=== PATIENT | male | born 1985 | race American Indian/Alaskan Native ===

== ENCOUNTER 2020-06-28 08:27 | Emergency (ER) | payer SELFPAY ==
[2020-06-28 08:34] VITALS: BP 146/90
--- NOTE | 2020-06-28 08:58 | XRay Report ---
CHEST 2 VIEWS INDICATION: cough. COMPARISON: None FINDINGS: SUPPORT DEVICES: None. HEART: Within normal limits. LUNGS/PLEURA: Small nodular density in the left lung base may represent a tiny calcified granuloma. O therwise clear lungs. No pneumothorax. ADDITIONAL FINDINGS: None. IMPRESSION: 1. No acute findings. Signer Name: Gil Wilder MD Signed: 06/28/2020 8:54 AM Workstation Name: [id number]
--- NOTE | 2020-06-28 09:04 | Emergency Department Report ---
Upper Respiratory HPI - HPI Chief Complaint: Upper Respiratory Infection Stated Complaint: COUGH/LEGS ITCHING Time Seen by Provider: 06/28/20 08:30 Duration: 3 months URI Symptoms: Rhinorrhea: No, Sore Throat: No, Ear Pain: No, Cough: Yes, Shortness of Breath: No, Sick Contacts: No, Unable to Take Fluids: No, Urine Output Abnormal: No, Listless Behavior: No Other History: This is a 35-year-old male nontoxic well in [facility] with no signs of distress presents with dry nonproductive cough x3 months. Patient also has a secondary complaint of jock itch x 1 week. Patient denies any chest pain, shortness of breathe, fever, chills, nausea, vomiting, headache, stiff neck, abdominal pain, numbness or tingling. Patient denies any recent travels, long car rides, or recent hospital stays. Denies any allergies or significant PMH. - Home Meds and Allergies Home Medications: Previous Rx's Medication Instructions Recorded Last Taken Type Benzonatate [Tessalon Perles] 100 mg PO Q12H PRN #12 capsule 06/28/20 Unknown Rx Clotrimazole 1% [Lotrimin 1%] 1 applic TP BID #1 tube 06/28/20 Unknown Rx ED Review of Systems ROS: Stated complaint: COUGH/LEGS ITCHING Other details as noted in HPI Constitutional: denies: chills, fever Eyes: denies: eye pain, eye discharge, vision change ENT: denies: ear pain, throat pain Respiratory: cough. denies: shortness of breath, wheezing Cardiovascular: denies: chest pain, palpitations Endocrine: no symptoms reported Gastrointestinal: denies: abdominal pain, nausea, diarrhea Genitourinary: denies: urgency, dysuria Musculoskeletal: denies: back pain, joint swelling, arthralgia Skin: rash. denies: lesions, change in color, change in hair/nails, pruritus Neurological: denies: headache, weakness, paresthesias Psychiatric: denies: anxiety, depression Hematological/Lymphatic: denies: easy bleeding, easy bruising ED Past Medical Hx - Past Medical History Previous Medical History?: No Additional medical history: VARICOSE - Social History Smoking Status: Never Smoker Substance Use Type: Alcohol, Marijuana - Medications Home Medications: Home Medications Medication Instructions Recorded Confirmed Last Taken Type Benzonatate [Tessalon Perles] 100 mg PO Q12H PRN #12 capsule 06/28/20 Unknown Rx Clotrimazole 1% [Lotrimin 1%] 1 applic TP BID #1 tube 06/28/20 Unknown Rx ED Bronchiolitis Physical Exam - Exam General: Vital signs noted. No distress. Alert and acting appropriately. Neurologic: Alert and oriented, no deficits. Musculoskeletal: Unremarkable. ED Bronchiolitis Tests - Testing Testing: CXR: Normal/Negative ED Physical Exam - General Limitations: No Limitations General appearance: alert, in no apparent distress - Head Head exam: Present: atraumatic, normocephalic - Eye Eye exam: Present: normal appearance - Neck Neck exam: Present: normal inspection, full ROM - Respiratory Respiratory exam: Present: normal lung sounds bilaterally. Absent: respiratory distress, wheezes, rales, rhonchi, stridor, chest wall tenderness, accessory muscle use, decreased breath sounds, prolonged expiratory - Cardiovascular Cardiovascular Exam: Present: regular rate, normal rhythm, normal heart sounds. Absent: bradycardia, tachycardia, irregular rhythm, systolic murmur, diastolic murmur, rubs, gallop - Extremities Exam Extremities exam: Present: full ROM - Back Exam Back exam: Present: full ROM - Neurological Exam Neurological exam: Present: alert, oriented X3 - Psychiatric Psychiatric exam: Present: normal affect, normal mood - Skin Skin exam: Present: warm, dry, intact, erythema (to bilateral jock area with itching). Absent: rash ED Course Vital Signs 06/28/20 08:34 Temperature 97.8 F Pulse Rate 73 Respiratory 18 Rate Blood Pressure 146/90 O2 Sat by Pulse 97 Oximetry - Reevaluation(s) Reevaluation #1: 06/28/20 09:02 Patient is speaking in full sentences with no signs of distress noted. ED Medical Decision Making - Radiology Data Referring Physician: VALENTE TORREZ Patient Name: SAULO SANFORD Date of : 1985 Sex: Male Report Date: 2020-06-28 Report Status: Finalized [facility] [address] [place] [address] XRay Report Signed Patient: SAULO SANFORD MR#: [id number] : 1985 Acct:[id number] Age/Sex: 35 / M ADM Date: 06/28/20 Loc: ED Attending Dr: Ordering Physician: VALENTE TORREZ NP Date of Service: 06/28/20 Procedure(s): XR chest routine 2V Accession Number(s): [id number] cc: VALENTE TORREZ NP Fluoro Time In Minutes: CHEST 2 VIEWS INDICATION: cough. COMPARISON: None FINDINGS: SUPPORT DEVICES: None. HEART: Within normal limits. LUNGS/PLEURA: Small nodular density in the left lung base may represent a tiny calcified granuloma. Otherwise clear lungs. No pneumothorax. ADDITIONAL FINDINGS: None. IMPRESSION: 1. No acute findings. Signer Name: Gil Wilder MD Signed: 06/28/2020 8:54 AM Workstation Name: [id number] Transcribed By: ANGELLA Dictated By: Gil Wilder MD Electronically Authenticated By: Gil Wilder MD Signed Date/Time: 06/28/2054 DD/ 2 TD/TT: - Medical Decision Making 35-year-old male that presents with chronic cough. Patient is stable and was examined by me. Patient notified of the chest xray with no questions noted by the patient. Patient was educated on OTC suppurative care and medications. Vital signs are stable. Patient was instructed to Follow-up with a primary care doctor in 3-5 days or if symptoms worsen and continue return to emergency room as soon as possible. At time of discharge, the patient does not seem toxic or ill in appearance. No acute signs of distress noted. Patient agrees to disch arge treatment plan of care. No further questions noted by the patient. Critical care attestation.: If time is entered above; I have spent that time in minutes in the direct care of this critically ill patient, excluding procedure time. ED Disposition Clinical Impression: Chronic cough, Jock itch Disposition: DC-01 TO HOME OR SELFCARE Is pt being admited?: No Does the pt Need Aspirin: No Condition: Stable Instructions: Jock Itch, [id number], Cough, Adult, [id number] Additional Instructions: Follow-up with a primary care doctor in 3-5 days or if symptoms worsen and c ontinue return to emergency room as soon as possible. Prescriptions: Clotrimazole 1% [Lotrimin 1%] 1 applic TP BID #1 tube Benzonatate [Tessalon Perles] 100 mg PO Q12H PRN #12 capsule PRN Reason: Cough Referrals: PRIMARY CAREMD [Primary Care Provider] - 3-5 Days HERBIE MOLINA MD [Staff Physician] - 3-5 Days [facility] [Provider Group] - 3-5 Days Time of Disposition: 09:07
== END 2020-06-28 10:12 | disposition home or self-care (01) ==
LOC: ED 08:27
DX: R05 Cough (principal); B35.6 Tinea cruris; F12.10 Cannabis abuse, uncomplicated; Z79.899 Other long term (current) drug therapy
CPT/HCPCS: 71046; 99283